=== PATIENT | male | born 1945 | race Caucasian/White ===

== ENCOUNTER 2024-04-14 12:22 | Outpatient (OUT) | payer OTHER, SELFPAY ==
--- NOTE | 2024-04-14 13:00 | CA_ITS ---
Patient Name: JES STALLWORTH MR#: [id number] : 1945 Exam Date: 04/14/2024 Ordering Doctor: DR. NATHANIEL LEONE ECHOCARDIOGRAM REPORT PROCEDURE: CA ECHO DOPPLER COMPLETE INDICATIONS: Coronary artery disease, PR with PTCA x 3 COMPARISON: None. DESCRIPTION: COMPLETE ECHOCARDIOGRAM Real-time transthoracic echocardiography with 2D, M-mode, spectral and color flow Doppler performed. QUALITY: Technical quality was good. LEFT VENTRICLE: Normal chamber size. Normal left ventricular wall thickness. Systolic function is at the lower limits of normal. LV EF: Low normal left ventricular ejection fraction, (50-55%). DIASTOLIC: Normal diastolic function. ATRIAL SEPTUM: Visually appears intact. LEFT ATRIUM: Normal chamber size. RIGHT ATRIUM: Normal chamber size. RIGHT VENTRICLE: Normal chamber size. Normal right ventricular systolic function. TRICUSPID VALVE: Normal mobility and thickness. No stenosis with trivial regurgitation. No evidence of pulmonary hypertension. RVSP 27 mmHg MITRAL VALVE: Normal mobility and thickness. No evidence of mitral valve stenosis. There is no mitral annular calcification. No mitral regurgitation. AORTIC VALVE: Normal trileaflet appearance. Mildly calcified aortic valve. Normal leaflet mobility. No evidence of aortic valve stenosis. No aortic regurgitation. AORTIC ROOT: Normal diameter and appearance. Ascending aorta is normal in size. PULMONIC VALVE: Normal thickness and mobility. No stenosis. No regurgitation. PERICARDIUM: No evidence of pericardial effusion. IVC: Collapses with inspirations. IVC is normal in size. PLEURA: CONCLUSION: 1. Normal left ventricular size with low normal systolic function. LVEF is estimated at 50 to 55%. 2. Normal right ventricular size and systolic function. 3. No significant valvular dysfunction. 4. Normal right-sided pressures. 5. No pericardial effusion. Adult Echocardiography Procedure Report Left Ventricle LVEDD (3.7 - 5.6 cm): 4.48 cm LVESD (2.2 - 4.0 cm): 3.30 cm LVIVS thickness (0.6 - 1.2 cm): 1.10 cm LVPW thickness (0.5 - 1.0 cm): 1.03 cm e': 0.10 m/s E - e': 4.04 LVOT Max Gradient: 2.05 mm[Hg] LVOT Area (cm2): 0.72 m/s Peak Velocity (LVOT): 0.72 m/s Mean Velocity (LVOT): 0.50 m/s LVOT Diameter 2.10 cm Left Atrium LA Volume Index (2D A2C): 27.95 ml/m2 Left Atrium Systolic Dimension: 3.23 cm Mitral Valve MV E to A Ratio: 0.51 Mitral Valve A-Wave Peak Velocity: 0.81 m/s Mitral Valve E-Wave Peak Velocity: 0.42 m/s Right Ventricle Aorta AO Root Diam: 3.47 cm Ascending Ao Diam: 3.13 cm Aortic Valve AoV Area (Peak Beto): 2.27 cm2, 2.27 cm2 AoV Area (VTI): 2.22 cm2, 2.22 cm2 Peak Velocity(Antegrade Flow): 1.09 m/s Peak Gradient(Antegrade Flow): 4.76 mm[Hg] Mean Velocity(Antegrade Flow): 0.79 m/s Mean Gradient(Antegrade Flow): 2.80 mm[Hg] Velocity Time Integral: 25.02 cm Tricuspid Valve Peak Velocity (Regurgitant Flow): 1.92 m/s, 2.44 m/s Pulmonic Valve Mean Gradient: 1.76 mm[Hg] Mean Velocity: 0.61 m/s Peak Velocity: 0.95 m/s, 0.77 m/s Peak Gradient: 2.38 mm[Hg], 3.62 mm[Hg] Right Atrium Right Atrium Systolic Pressure: 22.78 ml, 22.78 ml Dictated by: Dionte Gonzalez M.D. on 04/14/2024 at 19:28 Approved by: Dionte Gonzalez M.D. on 04/14/2024 at 19:30
== END 2024-04-14 12:23 | disposition home or self-care (01) ==
LOC: CARD 12:28
PROVIDERS: Visit Provider Chiropractor
DX: I25.10 Atherosclerotic heart disease of native coronary artery without angina pectoris (principal)
CPT/HCPCS: 93306